=== PATIENT | male | born 1960 | race Caucasian/White ===

== ENCOUNTER 2023-05-19 00:16 | Day surgery (SDC) | payer BC, SELFPAY ==
[2023-05-04 12:35] VITALS: BMI 29.7
--- NOTE | 2023-05-17 09:53 | SUR.PREOP ---
Patient called regarding upcoming procedure. Reviewed preop instructions, appointment times, and procedure prep.
[2023-05-19 09:55] VITALS: BP 135/91; PULSE 88; RESP 18; TEMP 36.5; O2SAT 98; BMI 29.4
[2023-05-19] MEDS: LACTATED RINGERS 1,000 ML 150 ML IV CONT (10:07)
--- NOTE | 2023-05-19 10:08 | P.PNAN_ITS ---
Anes - Initial Pre Proc Eval Procedure: Operation Date: 05/19/23 10:30 Proposed Procedures p Colonoscopy - Armaan Whiting MD Date/Time: 05/19/23 10:08 Surgeon: Armaan Whiting MD Pre Op Diagnosis: melena, HX colon polyps Patient Data Age: 62 Gender: M Height: 1.85 m Weight: 101.2 kg Last Vital Signs Temp 97.7 F 05/19/23 09:55 Pulse 88 05/19/23 09:55 Resp 18 05/19/23 09:55 BP 135/91 H 05/19/23 09:55 Pulse Ox 98 05/19/23 09:55 O2 Del Method Room Air 05/19/23 09:55 Allergies Allergy/AdvReac Type Severity Reaction Status Date / Time Sulfa (Sulfonamide AdvReac Mild Gastrointestinal Verified 05/19/23 09:54 Antibiotics) Upset Home Medications Medication Instructions Recorded Confirmed Type No Home Medications 05/19/23 05/19/23 History Patient hx anesthesia problems: none Family hx anesthesia problems: none Results Review: All pre-operative results and documents have been reviewed as part of the pre- operative evaluation. [facility] Past Medical History Medical History (Updated 04/10/23 @ 12:16 by Alex Lund MD) Bloody stools Encounter for screening for malignant neoplasm of prostate Fatigue Hemorrhoids History of colon polyps Screening for cholesterol level Surgical History Surgical History H/O colonoscopy 02/17/2017 History of ankle surgery Family History Family History Father Diabetes mellitus Hypertension Depression Mother Depression Cerebrovascular accident Grandparent Lung cancer Social History Social History Smoking status: Former smoker Tobacco type: cigarettes Alcohol intake: current Alcohol use details: BEER Substance use: never Substance use type: does not use Lack of Transportation: No Lack of Food: Never True Current Housing: I Have Housing Concerned About Future Housing: No Difficulty Paying Gas/Electric Bills: No Currently Unemployed: No Education: Don't Know Difficulty w/ Childcare or Family Care: No Living arrangements: with family Occupation/Education: retired Spiritual care concerns: No Agree to blood products: Yes Anes - Eval Final PreProcedure Day of Procedure 05/19/23 10:08 Patient weight: normal Heart: regular rate and rhythm Lungs: clear to auscultation Airway: Mallampati scale class II Neurological: alert and oriented Last oral intake: >/= 8 hours ASA classification: II Emergent: no Anesthetic plan: proceed Anesthesia type and monitoring: general GIVS and standard monitoring Results Review: All pre-operative results and documents have been reviewed as part of the pre- operative evaluation. Informed Consent: The patient's anesthetic plan and its attendant risks and benefits were discussed with the patient/family/POA. Questions were solicited and answers provided to the satisfaction of the patient/family/POA.
--- NOTE | 2023-05-19 10:10 | PM.HPGS ---
History of Present Illness History of Present Illness Consent: Risks, benefits, and alternatives have been discussed and questions answered. Patient agrees to proceed with procedure. Chief complaint: melena, HX colon polyps Narrative: Kurtis Lima is a 62 year old male Presents for colonoscopy. Patient reports having had bright red blood per rectum on several occasions in April. He denies any associated abdominal pain. In general his bowel habits are normal. Patient has a history of colonoscopy in 2017 that revealed internal hemorrhoids. He has no prior history of colon polyps. He has only had 1 prior colonoscopy. Patient states all bleeding has stopped and he is bowel habits have returned to normal at present. Review of Systems Review of Systems: Review of systems noncontributory. [facility] Past Medical History Medical History (Updated 05/19/23 @ 10:11 by Armaan Whiting MD) Bloody stools Encounter for screening for malignant neoplasm of prostate Fatigue Hemorrhoids History of colon polyps Screening for cholesterol level Surgical History Surgical History H/O colonoscopy 02/17/2017 History of ankle surgery Family History Family History Father Diabetes mellitus Hypertension Depression Mother Depression Cerebrovascular accident Grandparent Lung cancer Social History Social History Smoking status: Former smoker Tobacco type: cigarettes Alcohol intake: current Alcohol use details: BEER Substance use: never Substance use type: does not use Lack of Transportation: No Lack of Food: Never True Current Housing: I Have Housing Concerned About Future Housing: No Difficulty Paying Gas/Electric Bills: No Currently Unemployed: No Education: Don't Know Difficulty w/ Childcare or Family Care: No Living arrangements: with family Occupation/Education: retired Spiritual care concerns: No Agree to blood products: Yes Meds Home Medications and Allergies Home Medications Medication Instructions Recorded Confirmed Type No Home Medications 05/19/23 05/19/23 History Allergies Allergy/AdvReac Type Severity Reaction Status Date / Time Sulfa (Sulfonamide AdvReac Mild Gastrointestinal Verified 05/19/23 09:54 Antibiotics) Upset Vital Signs Vital Signs - 24 hr 05/19/23 09:55 Temperature 97.7 F Pulse Rate 88 Respiratory Rate 18 Blood Pressure 135/91 H Pulse Oximetry 98 Oxygen Delivery Room Air Exam Narrative: Physical exam reveals patient to be alert. Vital signs stable. HEENT exam is unremarkable. Patient is anicteric. Lungs are clear to auscultation and percussion. Heart is without murmur or extra sounds. Abdomen bowel sounds present soft nontender with no hepatosplenomegaly. Digital external rectal exam normal. Assessment and Plan Assessment and plan (1) Hemorrhoids: Code(s): K64.9 - Unspecified hemorrhoids Status: Acute Assessment and Plan: Patient known to have internal hemorrhoids from previous colonoscopy 2017. Likely these contribute to recent rectal blood loss. (2) Rectal bleeding: Code(s): K62.5 - Hemorrhage of anus and rectum Status: Acute Assessment and Plan: Patient with bright red blood per rectum associated with bowel movement for several occasions in April. This is now resolved. Colonoscopy requested will be performed to exclude organic disease. Previous colonoscopy 2017 revealed only internal hemorrhoids. There has been no polyps noted in the past. High-fiber diet is advised. Further recommendations may be given after colonoscopy.
[2023-05-19 10:32] VITALS: BP 101/72; PULSE 105; RESP 28; O2SAT 96
[2023-05-19 10:42] VITALS: BP 107/67; PULSE 97; RESP 20; O2SAT 93
[2023-05-19 10:52] VITALS: BP 114/82; PULSE 88; RESP 22; O2SAT 98
== END 2023-05-19 11:01 | disposition home or self-care (01) ==
PROVIDERS: PCP Family Medicine; Visit Provider Internal Medicine Gastroenterology
PROC: 0DJD8ZZ Inspection of Lower Intestinal Tract, Via Natural or Artificial Opening Endoscopic (ICD-10-PCS; CPT 45378; principal; 2023-05-19 10:30)
DX: K92.1 Melena (principal); D12.5 Benign neoplasm of sigmoid colon; K64.8 Other hemorrhoids; K57.30 Diverticulosis of large intestine without perforation or abscess without bleeding; Z82.49 Family history of ischemic heart disease and other diseases of the circulatory system; Z80.1 Family history of malignant neoplasm of trachea, bronchus and lung; Z87.891 Personal history of nicotine dependence
CPT/HCPCS: 45385; 88305; J2704; J7120